=== PATIENT | female | born 1950 | race Caucasian/White ===

== ENCOUNTER 2017-07-08 07:11 | Inpatient (IN) | payer MEDICARE ==
[~2017-07-08] VITALS: Ht 165.1 cm; Wt 91.1 kg
[2017-07-08] VITALS (10 sets, daily range): BP systolic 130–167; BP diastolic 61–75; PULSE 59–80; RESP 16–18; TEMP 97.3–99.5; O2SAT 93–98
[2017-07-08 07:30] LABS: BLOOD, URINE TRACE (NEG); GLUCOSE,URINE NEG (NEG); KETONE, URINE 15 mg/dL (NEG); NITRITE,URINE POS (NEG); URINE LEUKOCYTE ESTERASE MOD (NEG)
[2017-07-08 07:33] LABS: BILIRUBIN, URINE NEG (NEG)
[2017-07-08] MEDS ORDERED: ONDANSETRON HCL 4 MG/2 ML VIAL IV PUSH ONE (07:45)
[2017-07-08] MEDS ORDERED: SODIUM CHLOR 0.9% 1000 ML INJ 1,000 ML IV ONE (07:45)
[2017-07-08] MEDS ORDERED: KETOROLAC TROMETHAMINE 30 MG/ML (IVP) VIAL IV PUSH ONE (07:45)
--- NOTE | 2017-07-08 07:48 | PD ---
HPI Chief Complaint: Abdominal Pain Time Seen by Provider: 07:25 Travel History International Travel<30 days: No Contact w/Intl Traveler<30days: No Traveled to known affect area: No History of Present Illness HPI Patient is a 66-year-old female who comes in complaining of coughing, body aches , fevers. She also has had some nausea, vomiting, diarrhea. She says she has pain to her upper abdomen. She says this is been going on for the past 3 days. She says she had a fever of 103 yesterday. She has not taken anything for her symptoms. She says she is concerned because last time she felt like this, she had pneumonia. She denies shortness of breath. She denies chest pain. She has had a flu shot and a pneumonia shot. PFSH Past Medical History Blood Disorders: No Cancer: No Cardiovascular Problems: No Diminished Hearing: No Endocrine: No Genitourinary: No Immune Disorder: No Musculoskeletal: No Neurologic: No Psychiatric: No Reproductive: No Respiratory: No Influenza Vaccination: Yes ?: Not Past Surgical History Abdominal Surgery: Yes (CHOLECYSTECTOMY) Cholecystectomy: Yes Genitourinary Surgery: Yes (HYSTERECTOMY) Hysterectomy: Yes Social History Alcohol Use: Yes (WINE OCC) Tobacco Use: No Substance Use: No Allergies-Medications (Allergen,Severity, Reaction): Coded Allergies: No Known Allergies (Verified Adverse Reaction, Unknown, 07/08/17) Reported Meds & Prescriptions Reported Meds & Active Scripts Active Review of Systems Except as stated in HPI: all other systems reviewed are Neg General / Constitutional: Positive: Fever, Chills HENT: No: Headaches, Lightheadedness Cardiovascular: No: Chest Pain or Discomfort Respiratory: Positive: Cough Gastrointestinal: Positive: Nausea, Vomiting, Diarrhea Genitourinary: No: Dysuria Musculoskeletal: No: Myalgias, Edema Skin: No Rash, No Change in Pigmentation Neurologic: No: Weakness, Dizziness Physical Exam Narrative GENERAL: Awake and alert, in no acute distress. SKIN: Focused skin assessment warm/dry. HEAD: Atraumatic. Normocephalic. EYES: Pupils equal and round. No scleral icterus. ENT: Mucous membranes pink and moist. NECK: Trachea midline. No JVD. CARDIOVASCULAR: Regular rate and rhythm. No murmur appreciated. RESPIRATORY: No accessory muscle use. Clear to auscultation. Breath sounds equal bilaterally. GASTROINTESTINAL: Abdomen soft, non-tender, nondistended. MUSCULOSKELETAL: No obvious deformities. No clubbing. No cyanosis. No edema. NEUROLOGICAL: Awake and alert. No obvious cranial nerve deficits. Motor grossly within normal limits. Normal speech. PSYCHIATRIC: Appropriate mood and affect; insight and judgment normal. Data Data Last Documented VS Orders Orders Urinalysis - C+S If Indicated (07/08/17 07:19) Iv Access Insert/Monitor (07/08/17 07:33) Complete Blood Count With Diff (07/08/17 07:33) Comprehensive Metabolic Panel (07/08/17 07:33) Influenzae A/B Antigen (07/08/17 07:33) Chest, Pa & Lat (07/08/17 ) Lipase (07/08/17 07:33) Lactic Acid (07/08/17 07:33) Sodium Chlor 0.9% 1000 Ml Inj (Ns 1000 M (07/08/17 07:45) Ondansetron Inj (Zofran Inj) (07/08/17 07:45) Ketorolac Inj (Toradol Inj) (07/08/17 07:45) Urine Culture (07/08/17 07:25) Ceftriaxone Inj (Rocephin Inj) (07/08/17 08:30) Azithromycin Inj (Zithromax Inj) (07/08/17 08:30) Blood Culture (07/08/17 08:18) Potassium Chloride (Kcl) (07/08/17 08:30) Admit Order (Ed Use Only) (07/08/17 ) Labs Laboratory Tests Test 07/08/17 07:25 07/08/17 07:35 Urine Color YELLOW Urine Turbidity CL Urine pH 6.0 Urine Specific [place] 1.022 Urine Protein 100 mg/dL Urine Glucose (UA) NEG mg/dL Urine Ketones 15 mg/dL Urine Occult Blood TRACE Urine Nitrite POS Urine Bilirubin NEG Urine Leukocyte Esterase MOD Urine RBC 0-3 /hpf Urine WBC 50-99 /hpf Urine Squamous Epithelial Cells 0-5 /hpf Urine Transitional Epithelial Cells 0-5 /hpf Urine Bacteria MANY /hpf Microscopic Urinalysis Comment CULTURE INDICATED White Blood Count 6.4 TH/MM3 Red Blood Count 4.67 MIL/MM3 Hemoglobin 14.1 GM/DL Hematocrit 42.0 % Mean Corpuscular Volume 89.9 FL Mean Corpuscular Hemoglobin 30.2 PG Mean Corpuscular Hemoglobin Concent 33.6 % Red Cell Distribution Width 12.4 % Platelet Count 145 TH/MM3 Mean Platelet Volume 8.3 FL Neutrophils (%) (Auto) 65.2 % Lymphocytes (%) (Auto) 27.4 % Monocytes (%) (Auto) 7.2 % Eosinophils (%) (Auto) 0.0 % Basophils (%) (Auto) 0.2 % Neutrophils # (Auto) 4.1 TH/MM3 Lymphocytes # (Auto) 1.8 TH/MM3 Monocytes # (Auto) 0.5 TH/MM3 Eosinophils # (Auto) 0.0 TH/MM3 Basophils # (Auto) 0.0 TH/MM3 CBC Comment DIFF FINAL Differential Comment Blood Urea Nitrogen 20 MG/DL Creatinine 0.82 MG/DL Random Glucose 146 MG/DL Total Protein 7.8 GM/DL Albumin 3.6 GM/DL Calcium Level 8.4 MG/DL Alkaline Phosphatase 67 U/L Aspartate Amino Transf (AST/SGOT) 48 U/L Alanine Aminotransferase (ALT/SGPT) 51 U/L Total Bilirubin 0.7 MG/DL Sodium Level 137 MEQ/L Potassium Level 2.9 MEQ/L Chloride Level 102 MEQ/L Carbon Dioxide Level 27.3 MEQ/L Anion Gap 8 MEQ/L Estimat Glomerular Filtration Rate 70 ML/MIN Lactic Acid Level 1.7 mmol/L Lipase 132 U/L [facility] Medical Decision Making Medical Screen Exam Complete: Yes Emergency Medical Condition: Yes Medical Record Reviewed: Yes Differential Diagnosis UTI versus pneumonia versus influenza Narrative Course Patient is a 66-year-old female who comes in complaining of body aches, nausea, vomiting, feeling unwell. IV established, labs sent. Labs show no acute abnormalities. Chest x-ray concerning for bilateral pneumonias. Urinalysis positive for UTI. Patient given antibiotics, IV fluids. She'll be admitted for further management. Diagnosis Primary Impression: Bilateral pneumonia Qualified Codes: J18.9 - Pneumonia, unspecified organism Admitting Information Admitting Physician Requests: Admit Scripts Dextromethorphan-Guaifenesin (Mucinex DM) 30-600 Mg Tab 2 TAB PO BID Y for CHEST CONGESTION AND/OR COUGH, #10 TAB 0 Refills Prov: Maddy Houston MD 07/10/17 Lactobacillus Acidophilus (Lactinex) 1 Chew 1 TAB CHEW DAILY for Nutritional Supplement, #30 TAB 0 Refills Prov: Maddy Houston MD 07/10/17 Levofloxacin (Levaquin) 750 Mg Tablet 750 MG PO DAILY for Infection, #7 TAB 0 Refills Prov: Maddy Houston MD 07/10/17 Jana Vallejo MD Jul 08, 2017 07:47
[2017-07-08 07:49] LABS: AUTOMATED NEUTROPHIL # 4.1 TH/MM3 (1.8-7.7); BASOPHIL % 0.2 % (0.0-2.0); HEMOGLOBIN 14.1 GM/DL (11.6-15.3); LYMPH % 27.4 % (9.0-44.0); LYMPHOCYTE # 1.8 TH/MM3 (1.0-4.8); MEAN CELL VOLUME 89.9 FL (80.0-100.0); MEAN CORPUSCULAR HEMOGLOBIN 30.2 PG (27.0-34.0); MEAN CORPUSCULAR HGB CONC 33.6 % (32.0-36.0); MEAN PLATELET VOLUME 8.3 FL (7.0-11.0); MONO % 7.2 % (0.0-8.0); MONOCYTE # 0.5 TH/MM3 (0-0.9); NEUT % 65.2 % (16.0-70.0); PLATELET COUNT 145 TH/MM3 (150-450); RED BLOOD COUNT 4.67 MIL/MM3 (4.00-5.30); RED CELL DISTRIBUTION WIDTH 12.4 % (11.6-17.2); WHITE BLOOD COUNT 6.4 TH/MM3 (4.0-11.0)
[2017-07-08 07:50] LABS: URINE COLOR YELLOW (YELLW/STRAW)
[2017-07-08 07:51] LABS: BACTERIA, URINE MANY /hpf; RBC, URINE 0-3 /hpf (0-3); SQUAMOUS EPITHELIAL CELL URINE 0-5 /hpf (0-5); TRANSITIONAL EPI CELLS, URINE 0-5 /hpf
--- NOTE | 2017-07-08 07:52 | RADRPT ---
EXAM DATE/TIME: 07/08/2017 07:39 [place] COMPARISON: No previous studies available for comparison. INDICATIONS : Fever, cough, congestion, nausea, vomiting, and flu like symptoms x 3 days. MEDICAL HISTORY : None. SURGICAL HISTORY : Cholecystectomy. Hysterectomy. ENCOUNTER: Initial ACUITY: 3 days PAIN SCORE: 0/10 LOCATION: chest FINDINGS: PA and lateral views of the chest demonstrate the lungs to be symmetrically aerated with patchy opaci ty in both lung bases left greater than right. There is no definite pleural effusion. The heart size is within normal limits with no perihilar edema. The bony thorax is intact. There are surgical clips in the right upper abdomen consistent with prior cholecystectomy. CONCLUSION: Patchy opacity both lung bases left greater than right of concern for pneumonia.. Hill Perry MD on July 08, 2017 at 7:49 Board Certified Radiologist. This report was verified electronically.
[2017-07-08 08:26] LABS: ALBUMIN 3.6 GM/DL (3.4-5.0); BICARBONATE 27.3 MEQ/L (21.0-32.0); BLOOD UREA NITROGEN 20 MG/DL (7-18); CALCIUM 8.4 MG/DL (8.5-10.1); CHLORIDE 102 MEQ/L (98-107); GLUCOSE,RANDOM 146 MG/DL (74-106); LIPASE 132 U/L (73-393); SODIUM (NA) 137 MEQ/L (136-145)
[2017-07-08 08:29] LABS: ALT (GPT) 51 U/L (10-53); AST (GOT) 48 U/L (15-37); CREATININE 0.82 MG/DL (0.50-1.00); GLOMERULAR FILTRATION RATE 70 ML/MIN (>89); TOTAL BILIRUBIN ADULT 0.7 MG/DL (0.2-1.0); TOTAL PROTEIN 7.8 GM/DL (6.4-8.2)
[2017-07-08] MEDS ORDERED: cefTRIAXone INJ 1,000 MG in SODIUM CHLORIDE 0.9% INJ 100 ML IV ONE (08:30)
[2017-07-08] MEDS ORDERED: AZITHROMYCIN INJ 500 MG in SODIUM CHLOR 0.9% 250 ML INJ 250 ML IV ONE (08:30)
[2017-07-08] MEDS ORDERED: POTASSIUM CHLORIDE 10 MEQ CONTROLLED RELEASE TAB PO ONE ×2 (08:30→10:30)
[2017-07-08 08:43] LABS: ALKALINE PHOSPHATASE 67 U/L (45-117)
[2017-07-08] MEDS ORDERED: LACTULOSE SYRUP 20 GM/30 ML CUP PO PRN (10:30)
[2017-07-08] MEDS ORDERED: SENNOSIDES 8.6 MG TAB PO PRN (10:30)
[2017-07-08] MEDS ORDERED: NALOXONE HCL 0.4 MG/ML AMP IV PUSH PRN (10:30)
[2017-07-08] MEDS ORDERED: MAGNESIUM HYDROXIDE SUSP 30 ML CUP PO PRN (10:30)
[2017-07-08] MEDS ORDERED: SODIUM CHLORIDE 0.9% FLUSH 10 ML FLUSH IV FLUSH PRN (10:30)
[2017-07-08] MEDS ORDERED: BISACODYL 10 MG SUPP RECTAL PRN (10:30)
[2017-07-08] MEDS ORDERED: ONDANSETRON HCL 4 MG/2 ML VIAL IVP PRN (10:30)
[2017-07-08] MEDS: SODIUM CHLOR 0.9% 1000 ML INJ 1,000 ML IV SCH (13:02)
[2017-07-08] MEDS: ENOXAPARIN SODIUM 40 MG/0.4 ML SYRINGE SQ SCH (13:05)
--- NOTE | 2017-07-08 13:06 | HHI.HP ---
HPI Service [facility] Primary Care Physician Earl Alas MD Admission Diagnosis Bilateral pneumonia, UTI Diagnoses: (1) Community acquired pneumonia Diagnosis: Principal (2) Abnormal urinalysis Diagnosis: Principal Chief Complaint: Generalized weakness Nausea and vomiting Diarrhea Nonproductive cough Travel History International Travel<30 Days: No Contact w/Intl Traveler <30 Da: No Traveled to Known Affected Are: No History of Present Illness Written by Jana Baptiste, acting as scribe for Dr. Houston on 07/08/17 at 12:57. Ms. Grossman is a pleasant 66-year-old female patient with no known medical history who presented to the ED with generalized weakness, fever, nausea and vomiting and nonproductive cough and diarrhea. Patient states that on afternoon she developed a generalized weakness with associated vomiting. She went to sleep that evening and woke up in the morning diaphoretic and a reported fever of 104. Patient states she had continue nausea and vomiting and diarrhea with inability to keep anything down. She called her PCP Dr. Quijano's office who ordered nausea medication with which the patient could not keep down. Patient decided to present to the ED when her symptoms continued. She does admit to an associated nonproductive cough for several days. She denies any recent shortness of breath. Does admit to a previous history of pneumonia in the past and relates present symptoms to that time. Admits to receiving a flu and pneumonia shot this fall. Denies any chest pain. At the time of assessment symptoms have improved with no complaints of any nausea, vomiting, diarrhea or shortness of breath. Review of Systems Constitutional: COMPLAINS OF: Fever, Chills Endocrine: DENIES: Polyuria Eyes: DENIES: Blurred vision, Diplopia Respiratory: COMPLAINS OF: Cough, DENIES: Sputum production, Shortness of breath Cardiovascular: DENIES: Chest pain Gastrointestinal: COMPLAINS OF: Abdominal pain, Diarrhea, Nausea, Vomiting, DENIES: Black stools, Bloody stools, Constipation Musculoskeletal: DENIES: Joint pain Psychiatric: COMPLAINS OF: Anxiety Except as stated in HPI: all other systems reviewed are Neg Past Family Social History Past Medical History No medical history. Past Surgical History Cholecystectomy Hysterectomy. Reported Medications Active No Active Prescriptions or Reported Medications Allergies: Coded Allergies: No Known Allergies (Verified Adverse Reaction, Unknown, 07/08/17) Active Ordered Medications Current Medications Medications (Trade) Dose Ordered Sig/Dayron Route Start Time Stop Time Status Last Admin Sodium Chloride 1,000 ml @ 70 mls/hr [id number] IV 07/08/17 10:24 (NS Flush) 2 ml UNSCH PRN IV FLUSH 07/08/17 10:30 (NS Flush) 2 ml BID IV FLUSH 07/08/17 21:00 (Tylenol) 650 mg Q4H PRN PO 07/08/17 10:30 (Zofran Inj) 4 mg Q6H PRN IVP 07/08/17 10:30 (Restoril) 15 mg HS PRN PO 07/08/17 10:30 (Lovenox Inj) 40 mg Q24H SQ 07/08/17 12:00 (Narcan Inj) 0.4 mg UNSCH PRN IV PUSH 07/08/17 10:30 (Vibha-Colace) 1 tab BID PO 07/08/17 21:00 (Milk Of Magnesia Liq) 30 ml Q12H PRN PO 07/08/17 10:30 (Senokot) 17.2 mg Q12H PRN PO 07/08/17 10:30 (Dulcolax Supp) 10 mg DAILY PRN RECTAL 07/08/17 10:30 (Lactulose Liq) 30 ml DAILY PRN PO 07/08/17 10:30 Azithromycin 500 mg/Sodium Chloride 250 ml @ 250 mls/hr Q24H IV 07/09/17 09:00 Ceftriaxone Sodium 1000 mg/ Sodium Chloride 100 ml @ 200 mls/hr Q24H IV 07/09/17 11:00 Family History Brother at the age of 5050 years old with an AL x 3. Both mother and father have a history of cardiovascular disease. Social History Denies any tobacco use, alcohol use or illicit drug use. Physical Exam Vital Signs Vital Signs Date Time Temp Pulse Resp B/P (MAP) Pulse Ox O2 Delivery O2 Flow Rate FiO2 07/08/17 09:48 66 18 130/62 (84) 94 07/08/17 08:59 99.5 07/08/17 08:55 63 18 139/64 (89) 93 Room Air 07/08/17 07:14 98.6 69 16 167/75 (105) 94 Physical Exam GENERAL: This is a well-nourished, well-developed patient, lying in bed in no apparent distress. SKIN: No rashes, ecchymoses or lesions. Warm and dry. HEAD: Atraumatic. Normocephalic. EYES: Pupils equal round and reactive. Extraocular motions intact. No scleral icterus. No injection or drainage. ENT: Nose without bleeding, purulent drainage or septal hematoma. Throat without erythema, tonsillar hypertrophy or exudate. Uvula midline. Airway patent. NECK: Trachea midline. No JVD. Supple. CARDIOVASCULAR: Regular rate and rhythm without murmurs, gallops, or rubs. RESPIRATORY: Bronchial vesicular breath sounds noted in posterior lobes. Breath sounds equal bilaterally. No wheezes, rales, or rhonchi. GASTROINTESTINAL: Abdomen soft, non-tender, nondistended. No guarding. MUSCULOSKELETAL: Extremities without clubbing, cyanosis, or edema. No joint tenderness, effusion, or edema noted. NEUROLOGICAL: Awake and alert. Cranial nerves II through XII intact. Motor and sensory grossly within normal limits. Five out of 5 muscle strength in all muscle groups. Normal speech. Laboratory Laboratory Tests Test 07/08/17 07:25 07/08/17 07:35 Urine Color YELLOW Urine Turbidity CL Urine pH 6.0 Urine Specific [place] 1.022 Urine Protein 100 Urine Glucose (UA) NEG Urine Ketones 15 Urine Occult Blood TRACE Urine Nitrite POS Urine Bilirubin NEG Urine Leukocyte Esterase MOD Urine RBC 0-3 Urine WBC 50-99 Urine Squamous Epithelial Cells 0-5 Urine Transitional Epithelial Cells 0-5 Urine Bacteria MANY Microscopic Urinalysis Comment CULTURE INDICATED White Blood Count 6.4 Red Blood Count 4.67 Hemoglobin 14.1 Hematocrit 42.0 Mean Corpuscular Volume 89.9 Mean Corpuscular Hemoglobin 30.2 Mean Corpuscular Hemoglobin Concent 33.6 Red Cell Distribution Width 12.4 Platelet Count 145 Mean Platelet Volume 8.3 Neutrophils (%) (Auto) 65.2 Lymphocytes (%) (Auto) 27.4 Monocytes (%) (Auto) 7.2 Eosinophils (%) (Auto) 0.0 Basophils (%) (Auto) 0.2 Neutrophils # (Auto) 4.1 Lymphocytes # (Auto) 1.8 Monocytes # (Auto) 0.5 Eosinophils # (Auto) 0.0 Basophils # (Auto) 0.0 CBC Comment DIFF FINAL Differential Comment Blood Urea Nitrogen 20 Creatinine 0.82 Random Glucose 146 Total Protein 7.8 Albumin 3.6 Calcium Level 8.4 Alkaline Phosphatase 67 Aspartate Amino Transf (AST/SGOT) 48 Alanine Aminotransferase (ALT/SGPT) 51 Total Bilirubin 0.7 Sodium Level 137 Potassium Level 2.9 Chloride Level 102 Carbon Dioxide Level 27.3 Anion Gap 8 Estimat Glomerular Filtration Rate 70 Lactic Acid Level 1.7 Lipase 132 Date/Time Source Procedure Growth Status 07/08/17 07:40 Blood Peripheral Aerobic Blood Culture Pending Received 07/08/17 07:40 Blood Peripheral Anaerobic Blood Culture Pending Received 07/08/17 07:42 Nasal Washing Influenza Types A,B Antigen (KI) - Final NEGATIVE FOR FLU A AND B ANTIGEN.... Complete 07/08/17 07:25 Urine Clean Catch Urine Culture Pending Received Result Diagram: 07/08/17 0735 07/08/17 0735 Imaging Last Impressions Chest X-Ray 07/08/17 0000 Signed Impressions: Service Date/Time: Saturday, July 08, 2017 07:39 - CONCLUSION: Patchy opacity both lung bases left greater than right of concern for pneumonia.. Hill Perry MD Septic Shock Reassessment Septic shock perfusion: reassessment completed Caprini VTE Risk Assessment Caprini VTE Risk Assessment: Mod/High Risk (score >= 2) Caprini Risk Assessment Model Point Value = 1 Point Value = 2 Point Value = 3 Point Value = 5 Age 41-60 Minor surgery BMI > 25 kg/m2 Swollen legs Varicose veins or History of unexplained or recurrent spontaneous Oral contraceptives or hormone replacement Sepsis (< 1 month) Serious lung disease, including pneumonia (< 1 month) Abnormal pulmonary function Acute myocardial infarction Congestive heart failure (< 1 month) History of inflammatory bowel disease Medical patient at bed rest Age 61-74 Arthroscopic surgery Major open surgery (> 45 min) Laparoscopic surgery (> 45 min) Malignancy Confined to bed (> 72 hours) Immobilizing plaster cast Central venous access Age >= 75 History of VTE Family history of VTE Factor V Leiden Prothrombin [id number] Lupus anticoagulant Anticardiolipin antibodies Elevated serum homocysteine Heparin-induced thrombocytopenia Other congenital or acquired thrombophilia Stroke (< 1 month) Elective arthroplasty Hip, pelvis, or leg fracture Acute spinal cord injury (< 1 month) Prophylaxis Regimen Total Risk Factor Score Risk Level Prophylaxis Regimen 0-1 Low Early ambulation 2 Moderate Order ONE of the following: *Sequential Compression Device (SCD) *Heparin 5000 units SQ BID 3-4 Higher Order ONE of the following medications: *Heparin 5000 units SQ TID *Enoxaparin/Lovenox 40 mg SQ daily (WT < 150 kg, CrCl > 30 mL/min) *Enoxaparin/Lovenox 30 mg SQ daily (WT < 150 kg, CrCl > 10-29 mL/min) *Enoxaparin/Lovenox 30 mg SQ BID (WT < 150 kg, CrCl > 30 mL/min) AND/OR *Sequential Compression Device (SCD) 5 or more Highest Order ONE of the following medications: *Heparin 5000 units SQ TID (Preferred with Epidurals) *Enoxaparin/Lovenox 40 mg SQ daily (WT < 150 kg, CrCl > 30 mL/min) *Enoxaparin/Lovenox 30 mg SQ daily (WT < 150 kg, CrCl > 10-29 mL/min) *Enoxaparin/Lovenox 30 mg SQ BID (WT < 150 kg, CrCl > 30 mL/min) AND *Sequential Compression Device (SCD) Assessment and Plan Problem List: (1) Bilateral pneumonia ICD Code: J18.9 - Pneumonia, unspecified organism (2) Abnormal urinalysis ICD Code: R82.90 - Unspecified abnormal findings in urine Assessment and Plan Ms. Grossman is a pleasant 66-year-old female patient with no known medical history who presented to the ED with generalized weakness, fever, nausea and vomiting and nonproductive cough and diarrhea. Community-acquired bilateral pneumonia with complaints of generalized weakness, subjective fevers, cough and nausea and vomiting CXR reviewed showing patchy opacity of both lung bases, left greater than right of concern for pneumonia. WBC WNL. Lactic acid WNL. Afebrile. Monitor for infection. Influenza negative. Blood cultures have been drawn and pending. Follow growth. UA abnormal, await urine culture. Placed on Azithromycin IV and Ceftriaxone IV. Status post 1 L NS bolus in ED. Ensure hydration, NS @ 100ml/hr. Control nausea, Zofran available PRN. Supportive care. Tessalon pearls available for cough. Supplemental O2 to keep sats >92%. Currently on RA. PT evaluation and treat. Abnormal UA: UA showing moderate amount of leukocyte esterase with increased WBCs. Awaiting urine culture growth. Follow. Denies dysuria. WBC WNL. Monitor for infection. Covered with Ceftriaxone IV. Hypokalemia: suspect secondary to diarrhea and poor PO intake. K 2.9 on presentation. Replacement given. Follow BMP in am. DVT Prophylaxis: SCDs. Lovenox. This note was transcribed by BOB Puga . I, Dr. Maddy Houston personally performed the history, physical exam, and medical decision making; and confirmed the accuracy of the information in the transcribed note. Authenticated by Dr. Maddy Houston on 07/08/17 at 12:57. Physician Certification 2 Midnight Certification Type: Admission for Inpatient Services Order for Inpatient Services The services are ordered in accordance with Medicare regulations or non- Medicare payer requirements, as applicable. In the case of services not specified as inpatient-only, they are appropriately provided as inpatient services in accordance with the 2-midnight benchmark. Estimated LOS (days): 3 3 days is the estimated time the patient will need to remain in the hospital, assuming treatment plan goals are met and no additional complications. Post-Hospital Plan: Home Jana Baptiste Jul 08, 2017 13:06 Maddy Houston MD Jul 08, 2017 15:29
[2017-07-08] MEDS ORDERED: BENZONATATE 100 MG CAP PO PRN (13:30)
[2017-07-08] MEDS: DOCUSATE SODIUM 50 MG/SENNA 8.6 MG TAB PO SCH (21:00)
[2017-07-08] MEDS: ACETAMINOPHEN 325 MG TAB PO PRN (21:46)
[2017-07-08] MEDS: SODIUM CHLORIDE 0.9% FLUSH 10 ML FLUSH IV FLUSH SCH (21:46)
[2017-07-08] MEDS: TEMAZEPAM 15 MG CAP PO PRN (21:49)
[2017-07-09] VITALS (7 sets, daily range): BP systolic 117–157; BP diastolic 59–74; PULSE 52–85; RESP 16–18; TEMP 97.7–99.8; O2SAT 93–97
[2017-07-09] MEDS: SODIUM CHLOR 0.9% 1000 ML INJ 1,000 ML IV SCH ×2 (01:57→14:55)
[2017-07-09 06:41] LABS: AUTOMATED NEUTROPHIL # 2.6 TH/MM3 (1.8-7.7); BASOPHIL % 0.1 % (0.0-2.0); EOSINOPHIL % 0.3 % (0.0-4.0); HEMATOCRIT 39.4 % (35.0-46.0); HEMOGLOBIN 13.1 GM/DL (11.6-15.3); LYMPH % 43.7 % (9.0-44.0); LYMPHOCYTE # 2.3 TH/MM3 (1.0-4.8); MEAN CELL VOLUME 91.1 FL (80.0-100.0); MEAN CORPUSCULAR HEMOGLOBIN 30.3 PG (27.0-34.0); MEAN CORPUSCULAR HGB CONC 33.2 % (32.0-36.0); MEAN PLATELET VOLUME 8.6 FL (7.0-11.0); MONO % 7.1 % (0.0-8.0); MONOCYTE # 0.4 TH/MM3 (0-0.9); NEUT % 48.8 % (16.0-70.0); PLATELET COUNT 132 TH/MM3 (150-450); RED BLOOD COUNT 4.33 MIL/MM3 (4.00-5.30); RED CELL DISTRIBUTION WIDTH 12.2 % (11.6-17.2); WHITE BLOOD COUNT 5.3 TH/MM3 (4.0-11.0)
[2017-07-09 06:59] LABS: BICARBONATE 24.4 MEQ/L (21.0-32.0); CALCIUM 7.8 MG/DL (8.5-10.1); CREATININE 0.53 MG/DL (0.50-1.00)
[2017-07-09] MEDS: DOCUSATE SODIUM 50 MG/SENNA 8.6 MG TAB PO SCH ×2 (08:04→20:14)
[2017-07-09] MEDS: AZITHROMYCIN INJ 500 MG in SODIUM CHLOR 0.9% 250 ML INJ 250 ML IV SCH (08:04)
[2017-07-09] MEDS: SODIUM CHLORIDE 0.9% FLUSH 10 ML FLUSH IV FLUSH SCH ×2 (08:04→20:14)
--- NOTE | 2017-07-09 09:08 | HHI.PR ---
Subjective Remarks Still with sob , some cough not much coming out. No fever or chills. No n/v/d/ c. Renee perdomo on room air however she is not moving much Will ask PT for eval K low replaced Objective Vitals Vital Signs Date Time Temp Pulse Resp B/P (MAP) Pulse Ox O2 Delivery O2 Flow Rate FiO2 07/09/17 08:00 99.8 85 16 157/73 (101) 93 07/09/17 00:00 97.7 52 16 117/59 (78) 97 07/08/17 20:00 97.9 59 18 136/61 (86) 94 07/08/17 19:45 95 21 07/08/17 16:00 98.0 80 18 130/66 (87) 97 07/08/17 15:42 93 07/08/17 12:30 97.3 59 18 133/65 (87) 95 07/08/17 11:00 99.5 64 18 145/67 (93) 98 07/08/17 09:48 66 18 130/62 (84) 94 I/O 07/08/17 07/08/17 07/08/17 07/09/17 07/09/17 07/09/17 07:00 15:00 23:00 07:00 15:00 23:00 Intake Total 1350 ml 360 ml 650 ml Balance 1350 ml 360 ml 650 ml Intake Oral 360 ml IV Total 1350 ml 650 ml # Voids 4 Result Diagram: 07/09/17 0540 07/09/17 0540 Imaging Last Impressions Chest X-Ray 07/08/17 0000 Signed Impressions: Service Date/Time: Saturday, July 08, 2017 07:39 - CONCLUSION: Patchy opacity both lung bases left greater than right of concern for pneumonia.. Hill Perry MD Objective Remarks GENERAL: This is a well-nourished, well-developed patient, lying in bed in no apparent distress. CARDIOVASCULAR: Regular rate and rhythm without murmurs, gallops, or rubs. RESPIRATORY: Bronchial vesicular breath sounds noted in posterior lobes. Breath sounds equal bilaterally. No wheezes, rales, or rhonchi. GASTROINTESTINAL: Abdomen soft, non-tender, nondistended. No guarding. MUSCULOSKELETAL: Extremities without clubbing, cyanosis, or edema. No joint tenderness, effusion, or edema noted. NEUROLOGICAL: Awake and alert. Cranial nerves II through XII intact. Motor and sensory grossly within normal limits. Five out of 5 muscle strength in all muscle groups. Normal speech. A/P Problem List: (1) Bilateral pneumonia ICD Code: J18.9 - Pneumonia, unspecified organism (2) Abnormal urinalysis ICD Code: R82.90 - Unspecified abnormal findings in urine Assessment and Plan Ms. Grossman is a pleasant 66-year-old female patient with no known medical history who presented to the ED with generalized weakness, fever, nausea and vomiting and nonproductive cough and diarrhea. Community-acquired bilateral pneumonia with complaints of generalized weakness, subjective fevers, cough and nausea and vomiting CXR reviewed showing patchy opacity of both lung bases, left greater than right of concern for pneumonia. WBC WNL. Lactic acid WNL. Afebrile. Monitor for infection. Influenza negative. Blood cultures have been drawn and pending. Follow growth. UA abnormal, await urine culture. Placed on Azithromycin IV and Ceftriaxone IV. Status post 1 L NS bolus in ED. Ensure hydration, NS @ 100ml/hr. Control nausea, Zofran available PRN. Supportive care. Tessalon pearls available for cough. Supplemental O2 to keep sats >92%. Currently on RA. PT evaluation and treat. Abnormal UA: UA showing moderate amount of leukocyte esterase with increased WBCs. Awaiting urine culture growth. Follow. Denies dysuria. WBC WNL. Monitor for infection. Covered with Ceftriaxone IV. Hypokalemia: suspect secondary to diarrhea and poor PO intake. K 2.9. Replacement given. Follow BMP in am. DVT Prophylaxis: SCDs. Lovenox. Maddy Houston MD Jul 09, 2017 09:08
[2017-07-09] MEDS ORDERED: POTASSIUM CHLORIDE 10 MEQ CONTROLLED RELEASE TAB PO ONE ×2 (10:00→12:00)
[2017-07-09] MEDS: ACETAMINOPHEN 325 MG TAB PO PRN (10:29)
[2017-07-09] MEDS: cefTRIAXone INJ 1,000 MG in SODIUM CHLORIDE 0.9% INJ 100 ML IV SCH (11:33)
[2017-07-09] MEDS: ENOXAPARIN SODIUM 40 MG/0.4 ML SYRINGE SQ SCH (12:19)
[2017-07-09] MEDS ORDERED: MAGNESIUM OXIDE 400 MG TAB PO ONE (20:00)
[2017-07-09] MEDS: POTASSIUM CHLORIDE 20 MEQ CONTROLLED RELEASE TAB PO SCH (20:52)
[2017-07-09] MEDS: CALCIUM CARBONATE 500 MG CHEWABLE TAB CHEW SCH (20:52)
[2017-07-09] MEDS: TEMAZEPAM 15 MG CAP PO PRN (20:56)
[2017-07-10] VITALS: BP 139/72; PULSE 71; RESP 17; TEMP 98.9; O2SAT 95
[2017-07-10 08:00] VITALS: BP_SYST 144; BP_SYST 152; BP_DIAS 78; BP_DIAS 88; PULSE 53; PULSE 76; RESP 14; RESP 16; TEMP 97.8; O2SAT 94; O2SAT 95; O2SAT 98
[2017-07-10 08:12] LABS: AUTOMATED NEUTROPHIL # 2.4 TH/MM3 (1.8-7.7); BASOPHIL % 0.2 % (0.0-2.0); HEMATOCRIT 37.5 % (35.0-46.0); HEMOGLOBIN 12.4 GM/DL (11.6-15.3); LYMPH % 35.2 % (9.0-44.0); LYMPHOCYTE # 1.6 TH/MM3 (1.0-4.8); MEAN CELL VOLUME 89.6 FL (80.0-100.0); MEAN CORPUSCULAR HEMOGLOBIN 29.7 PG (27.0-34.0); MEAN CORPUSCULAR HGB CONC 33.1 % (32.0-36.0); MEAN PLATELET VOLUME 8.3 FL (7.0-11.0); MONO % 8.8 % (0.0-8.0); MONOCYTE # 0.4 TH/MM3 (0-0.9); NEUT % 54.8 % (16.0-70.0); PLATELET COUNT 133 TH/MM3 (150-450); RED BLOOD COUNT 4.19 MIL/MM3 (4.00-5.30); RED CELL DISTRIBUTION WIDTH 11.8 % (11.6-17.2); WHITE BLOOD COUNT 4.4 TH/MM3 (4.0-11.0)
[2017-07-10 08:26] LABS: CALCIUM 8.2 MG/DL (8.5-10.1); MAGNESIUM 1.8 MG/DL (1.5-2.5)
[2017-07-10 08:30] LABS: CREATININE 0.45 MG/DL (0.50-1.00)
--- NOTE | 2017-07-10 08:56 | HHI.PR ---
Subjective Remarks Feels much better no pulmonary urination. No fever or chills nausea. His pain. Denies shortness of breath she is ambulating in the room less cough. Feels much better and wants to go home today. Objective Vitals Vital Signs Date Time Temp Pulse Resp B/P (MAP) Pulse Ox O2 Delivery O2 Flow Rate FiO2 07/10/17 00:00 98.9 71 17 139/72 (94) 95 07/09/17 21:15 96 21 07/09/17 20:00 99.4 60 18 143/67 (92) 96 07/09/17 16:00 99.0 58 18 135/74 (94) 96 07/09/17 12:00 99.5 85 16 139/71 (93) 95 I/O 07/09/17 07/09/17 07/09/17 07/10/17 07/10/17 07/10/17 07:00 15:00 23:00 07:00 15:00 23:00 Intake Total 650 ml 700 ml 1200 ml 1720 ml Balance 650 ml 700 ml 1200 ml 1720 ml Intake Oral 1200 ml IV Total 650 ml 700 ml 1720 ml # Voids 4 12 2 # Bowel Movements 4 Result Diagram: 07/10/17 0745 07/10/17 0745 Imaging Last Impressions Chest X-Ray 07/08/17 0000 Signed Impressions: Service Date/Time: Saturday, July 08, 2017 07:39 - CONCLUSION: Patchy opacity both lung bases left greater than right of concern for pneumonia.. Hill Perry MD Objective Remarks GENERAL: This is a well-nourished, well-developed patient, lying in bed in no apparent distress. CARDIOVASCULAR: Regular rate and rhythm without murmurs, gallops, or rubs. RESPIRATORY: Bronchial vesicular breath sounds noted in posterior lobes improved significantly. Breath sounds equal bilaterally. No wheezes, rales, or rhonchi. GASTROINTESTINAL: Abdomen soft, non-tender, nondistended. No guarding. MUSCULOSKELETAL: Extremities without clubbing, cyanosis, or edema. No joint tenderness, effusion, or edema noted. NEUROLOGICAL: Awake and alert. Cranial nerves II through XII intact. Motor and sensory grossly within normal limits. Five out of 5 muscle strength in all muscle groups. Normal speech. A/P Problem List: (1) Bilateral pneumonia ICD Code: J18.9 - Pneumonia, unspecified organism (2) Abnormal urinalysis ICD Code: R82.90 - Unspecified abnormal findings in urine Assessment and Plan Ms. Grossman is a pleasant 66-year-old female patient with no known medical history who presented to the ED with generalized weakness, fever, nausea and vomiting and nonproductive cough and diarrhea. Community-acquired bilateral pneumonia with complaints of generalized weakness, subjective fevers, cough and nausea and vomiting CXR reviewed showing patchy opacity of both lung bases, left greater than right of concern for pneumonia. WBC WNL. Lactic acid WNL. Afebrile. Monitor for infection. Influenza negative. Blood cultures have been drawn and pending. Follow growth. UA abnormal, await urine culture. Placed on Azithromycin IV and Ceftriaxone IV. Status post 1 L NS bolus in ED. Ensure hydration, NS @ 100ml/hr. Control nausea, Zofran available PRN. Supportive care. Tessalon pearls available for cough. Supplemental O2 to keep sats >92%. Currently on RA. PT evaluation and treat. UtI E coli UA showing moderate amount of leukocyte esterase with increased WBCs. Awaiting urine culture growth. Follow. Denies dysuria. WBC WNL. Monitor for infection. Covered with Ceftriaxone IV. Pansensitive E coli Severe persistent Hypokalemia: suspect secondary to diarrhea and poor PO intake. Replacement given. Started scheduled Kcl 20 mEq bid . Monitor closely. Follow BMP in am. DVT Prophylaxis: SCDs. Lovenox. Discussed with the patient, nurse Improved significantly, she is discharged home in stable condition to follow-up as outpatient. Discharge Planning Discharge home in stable condition to follow-up with PCP and consultants as outpatient. Medications per medication reconciliation Diet healthy heart diet as tolerated Activities ad khanh. as tolerated Maddy Houston MD Jul 10, 2017 08:56
[2017-07-10] MEDS ORDERED: MAGNESIUM OXIDE 400 MG TAB PO SCH (09:00)
[2017-07-10] MEDS ORDERED: POTASSIUM BICARBONATE 25 MEQ EFFERVESCENT TAB PO ONE (10:00)
[2017-07-10] MEDS: SODIUM CHLOR 0.9% 1000 ML INJ 1,000 ML IV SCH (10:45)
[2017-07-10] MEDS: CALCIUM CARBONATE 500 MG CHEWABLE TAB CHEW SCH (10:45)
[2017-07-10] MEDS: POTASSIUM CHLORIDE 20 MEQ CONTROLLED RELEASE TAB PO SCH (10:46)
[2017-07-10] MEDS: SODIUM CHLORIDE 0.9% FLUSH 10 ML FLUSH IV FLUSH SCH (10:46)
[2017-07-10] MEDS: AZITHROMYCIN INJ 500 MG in SODIUM CHLOR 0.9% 250 ML INJ 250 ML IV SCH (10:47)
[2017-07-10] MEDS: DOCUSATE SODIUM 50 MG/SENNA 8.6 MG TAB PO SCH (10:48)
[2017-07-10] MEDS: ENOXAPARIN SODIUM 40 MG/0.4 ML SYRINGE SQ SCH (10:51)
[2017-07-10 12:00] VITALS: BP 152/81; PULSE 55; RESP 16; TEMP 98.3; O2SAT 95
[2017-07-10] MEDS: cefTRIAXone INJ 1,000 MG in SODIUM CHLORIDE 0.9% INJ 100 ML IV SCH (12:03)
[2017-07-10] MEDS ORDERED: LEVA750T9 PO (13:44)
[2017-07-10] MEDS ORDERED: LACTCHW3 CHEW (13:44)
--- NOTE | 2017-07-10 13:44 | HHI.DS ---
Discharge Summary Admission Date Jul 08, 2017 at 09:09 Discharge Date: Jul 10, 2017 Admitting Diagnosis Bilateral pneumonia, UTI (1) Bilateral pneumonia ICD Code: J18.9 - Pneumonia, unspecified organism (2) Abnormal urinalysis ICD Code: R82.90 - Unspecified abnormal findings in urine Procedures None Brief History - From Admission Written by Jana Baptiste, acting as scribe for Dr. Houston on 07/08/17 at 12:57. Ms. Grossman is a pleasant 66-year-old female patient with no known medical history who presented to the ED with generalized weakness, fever, nausea and vomiting and nonproductive cough and diarrhea. Patient states that on afternoon she developed a generalized weakness with associated vomiting. She went to sleep that evening and woke up in the morning diaphoretic and a reported fever of 104. Patient states she had continue nausea and vomiting and diarrhea with inability to keep anything down. She called her PCP Dr. Quijano's office who ordered nausea medication with which the patient could not keep down. Patient decided to present to the ED when her symptoms continued. She does admit to an associated nonproductive cough for several days. She denies any recent shortness of breath. Does admit to a previous history of pneumonia in the past and relates present symptoms to that time. Admits to receiving a flu and pneumonia shot this fall. Denies any chest pain. At the time of assessment symptoms have improved with no complaints of any nausea, vomiting, diarrhea or shortness of breath. CBC/BMP: 07/10/17 0745 07/10/17 0745 Significant Findings Laboratory Tests Test 07/08/17 07:25 07/08/17 07:35 07/09/17 05:40 07/10/17 07:45 Urine Protein 100 mg/dL (NEG-TRACE) Urine Ketones 15 mg/dL (NEG) Urine Nitrite POS (NEG) Urine Leukocyte Esterase MOD (NEG) Urine WBC 50-99 /hpf (0-5) Urine Bacteria MANY /hpf (NONE) Platelet Count 145 TH/MM3 (150-450) 132 TH/MM3 (150-450) 133 TH/MM3 (150-450) Blood Urea Nitrogen 20 MG/DL (7-18) Random Glucose 146 MG/DL (74-106) Calcium Level 8.4 MG/DL (8.5-10.1) 7.8 MG/DL (8.5-10.1) 8.2 MG/DL (8.5-10.1) Aspartate Amino Transf (AST/SGOT) 48 U/L (15-37) Potassium Level 2.9 MEQ/L (3.5-5.1) 2.9 MEQ/L (3.5-5.1) 3.3 MEQ/L (3.5-5.1) Estimat Glomerular Filtration Rate 70 ML/MIN (>89) Chloride Level 109 MEQ/L (98-107) 109 MEQ/L (98-107) Monocytes (%) (Auto) 8.8 % (0.0-8.0) Creatinine 0.45 MG/DL (0.50-1.00) Imaging Last Impressions Chest X-Ray 07/08/17 0000 Signed Impressions: Service Date/Time: Saturday, July 08, 2017 07:39 - CONCLUSION: Patchy opacity both lung bases left greater than right of concern for pneumonia.. Hill Perry MD PE at Discharge GENERAL: This is a well-nourished, well-developed patient, lying in bed in no apparent distress. CARDIOVASCULAR: Regular rate and rhythm without murmurs, gallops, or rubs. RESPIRATORY: Bronchial vesicular breath sounds noted in posterior lobes. Breath sounds equal bilaterally. No wheezes, rales, or rhonchi. GASTROINTESTINAL: Abdomen soft, non-tender, nondistended. No guarding. MUSCULOSKELETAL: Extremities without clubbing, cyanosis, or edema. No joint tenderness, effusion, or edema noted. NEUROLOGICAL: Awake and alert. Cranial nerves II through XII intact. Motor and sensory grossly within normal limits. Five out of 5 muscle strength in all muscle groups. Normal speech. Hospital Course Ms. Grossman is a pleasant 66-year-old female patient with no known medical history who presented to the ED with generalized weakness, fever, nausea and vomiting and nonproductive cough and diarrhea. With Community-acquired bilateral pneumonia with complaints of generalized weakness, subjective fevers, cough and nausea and vomiting CXR reviewed showing patchy opacity of both lung bases, left greater than right of concern for pneumonia. WBC WNL. Lactic acid WNL. Afebrile. Monitor for infection. Influenza negative. Blood cultures have been drawn and pending. Follow growth. UA abnormal, await urine culture. Placed on Azithromycin IV and Ceftriaxone IV. Change to by mouth antibiotics Levaquin at discharge UtI E coli UA showing moderate amount of leukocyte esterase with increased WBCs. Awaiting urine culture growth. Follow. Denies dysuria. WBC WNL. Monitor for infection. Covered with Ceftriaxone IV.nPansensitive E coli Improved, discharged home in stable condition to follow-up as outpatient with PCP and consultants Pt Condition on Discharge: Stable Discharge Disposition: Discharge Home Discharge Time: > 30 minutes Discharge Instructions DIET: Follow Instructions for: As Tolerated, No Restrictions Activities you can perform: Regular-No Restrictions Follow up Referrals: PCP Follow-up - 2-3 Days New Medications: Dextromethorphan-Guaifenesin (Mucinex DM) 30-600 Mg Tab 2 TAB PO BID PRN for CHEST CONGESTION AND/OR COUGH, #10 TAB 0 Refills Lactobacillus Acidophilus (Lactinex) 1 Chew 1 TAB CHEW DAILY for Nutritional Supplement, #30 TAB 0 Refills Levofloxacin (Levaquin) 750 Mg Tablet 750 MG PO DAILY for Infection, #7 TAB 0 Refills Maddy Houston MD Jul 10, 2017 13:44
[2017-07-10] MEDS ORDERED: HUMIBIDDM PO (13:45)
== END 2017-07-10 15:19 | disposition home or self-care (01) | DRG 194 ==
LOC: PHED 07:11 → PHEDA 09:09 → PH3B 09:52
PROVIDERS: ADMIT Hospitalist; ATTEND Hospitalist
DX: J18.9 Pneumonia, unspecified organism (principal); N39.0 Urinary tract infection, site not specified; B96.20 Unspecified Escherichia coli [E. coli] as the cause of diseases classified elsewhere; E87.6 Hypokalemia; R19.7 Diarrhea, unspecified; Z87.01 Personal history of pneumonia (recurrent)
CPT/HCPCS: 71020; 80048; 80053; 81001; 83605; 83690; 83735; 85025; 87040; 87077; 87086; 87186; 87804; 96374; 96375; J0456; J0696; J1650; J1885; J2405; J7030; J7050

== ENCOUNTER 2017-12-26 20:06 | Emergency (ER) | payer MEDICARE ==
[~2017-12-26] VITALS: Ht 165.1 cm; Wt 89.8 kg
[~2017-12-26 20:06] MED LIST: HUMIBIDDM PO; LACTCHW3 CHEW; LEVA750T9 PO
[2017-12-26 20:08] VITALS: BP 184/79; PULSE 69; RESP 20; TEMP 97.8; O2SAT 96
[2017-12-26] MEDS ORDERED: AMOX125C CHEW (20:15)
--- NOTE | 2017-12-26 20:33 | PD ---
HPI Chief Complaint: Respiratory Symptoms Time Seen by Provider: 20:23 Travel History International Travel<30 days: No Contact w/Intl Traveler<30days: No Traveled to known affect area: No History of Present Illness HPI This patient complains of dry cough and congestion and clear runny nose and hoarse voice for 2 days. Symptom severity is moderate. She was concerned because she has history of pneumonia. She had a temperature of 99 at home using oral thermometer. No alleviating factors. No exacerbating factors. She is not short of breath. No chest pain. PFSH Past Medical History Hx Anticoagulant Therapy: Yes (BABY ASPIRIN DAILY) Blood Disorders: No Cancer: No Cardiovascular Problems: No Diminished Hearing: No Endocrine: No Genitourinary: No Immune Disorder: No Musculoskeletal: No Neurologic: No Psychiatric: No Reproductive: No Respiratory: No Past Surgical History Abdominal Surgery: Yes (CHOLECYSTECTOMY) Cholecystectomy: Yes Genitourinary Surgery: Yes (HYSTERECTOMY) Hysterectomy: Yes (40 YEARS AGO) Social History Alcohol Use: Yes (WINE OCC) Tobacco Use: No Substance Use: No Allergies-Medications (Allergen,Severity, Reaction): Coded Allergies: No Known Allergies (Verified Adverse Reaction, Unknown, 12/26/17) Reported Meds & Prescriptions Reported Meds & Active Scripts Active Reported Amoxicillin 125 Mg Chew 125 Mg CHEW TID Review of Systems General / Constitutional: No: Fever Eyes: No: Visual changes HENT: Positive: Rhinorrhea, Congestion, No: Headaches Cardiovascular: No: Chest Pain or Discomfort Respiratory: Positive: Cough, No: Shortness of Breath Gastrointestinal: No: Abdominal Pain Genitourinary: No: Dysuria Musculoskeletal: No: Pain Skin: No Rash Neurologic: No: Weakness Psychiatric: No: Depression Endocrine: No: Polydipsia Hematologic/Lymphatic: No: Easy Bruising Physical Exam Narrative GENERAL: Well-nourished, well-developed patient in no apparent distress. SKIN: Focused skin assessment reveals no rash and nodules. Skin is Warm and dry. HEAD: Atraumatic. Normocephalic. EYES: Pupils equal and round. No scleral icterus. No injection or drainage. ENT: No nasal bleeding or discharge. Mucous membranes pink and moist. Throat clear, has clear rhinorrhea NECK: Trachea midline. No JVD. No meningeal signs CARDIOVASCULAR: Regular rate and rhythm. No murmur appreciated. RESPIRATORY: No accessory muscle use. Clear to auscultation. Breath sounds equal bilaterally. GASTROINTESTINAL: Abdomen soft, non-tender, nondistended. Hepatic and splenic margins not palpable. MUSCULOSKELETAL: No obvious deformities. No clubbing. No cyanosis. No edema. NEUROLOGICAL: Awake and alert. No obvious cranial nerve deficits. Motor grossly within normal limits. hAs a laryngitic voice . PSYCHIATRIC: Appropriate mood and affect; insight and judgment normal. Data Data Last Documented VS Vital Signs Date Time Temp Pulse Resp B/P (MAP) Pulse Ox O2 Delivery O2 Flow Rate FiO2 12/26/17 20:46 68 20 170/90 (116) 94 Nasal Cannula 12/26/17 20:08 97.8 Orders Orders Chest, Single Ap (12/26/17 ) MDM Medical Decision Making Medical Screen Exam Complete: Yes Emergency Medical Condition: Yes Medical Record Reviewed: Yes Differential Diagnosis Pneumonia, bronchitis, URI, flu syndrome, laryngitis Narrative Course I have reviewed the patient's electronic medical record. Patient was treated for pneumonia in June 2017 I reviewed her chest x-ray which shows atelectasis but no consolidation I believe she has a viral respiratory illness. I do not see indication for antibiotics. Supportive care discussed. Diagnosis Primary Impression: Acute viral bronchitis Additional Instructions: The patient was advised to follow up with their physician and return if they worsen. Med/Other Pt SpecificInfo: Other Disposition: 01 DISCHARGE HOME Condition: Stable Eliezer Velez MD Dec 26, 2017 20:33
[2017-12-26 20:46] VITALS: BP 170/90; PULSE 68; RESP 20; O2SAT 94
--- NOTE | 2017-12-26 21:04 | RADRPT ---
EXAM DATE: 12/26/2017 8:59 PM EDT AGE/SEX: 67 years / Female INDICATIONS: Cough and congestion. CLINICAL DATA: This is the patient's initial encounter. Patient reports that signs and symptoms have been present for 2 days and indicates a pain score of 4/10. MEDICAL/SURGICAL HISTORY: None. None. COMPARISON: No prior exams available for comparison. FINDINGS: A single AP view of the chest demonstrates the lungs to be symmetrically aerated without evidence of mass, infiltrate or effusion. Mild basilar atelectasis. The cardiomediastinal contours are unremarka ble. Osseous structures are intact. CONCLUSION: Minimal basilar atelectasis. Electronically signed by: Heath Guzman MD 12/26/2017 9:02 PM EDT
[2017-12-26 22:25] VITALS: BP 175/97; PULSE 69; RESP 18; O2SAT 97
== END 2017-12-26 22:43 | disposition home or self-care (01) ==
LOC: PHED 20:06
DX: J20.8 Acute bronchitis due to other specified organisms (principal)
CPT/HCPCS: 71045; 99283